=== PATIENT | female | born 1965 | race Caucasian/White ===

== ENCOUNTER → 2019-07-20 | Day surgery (SDC) | payer BC ==
[~2019-07-20] MED LIST: FENTANYL CITRATE/PF 100MCG/2 ML INJ ONE; FERROUS SULFAT325 MG PO; LIDOCAINE HCL 2% LOCAL INJ 5 ML SDV VIAL INJ ONE; LISINOPRIL-HCT1 EAC2 PO; MIDAZOLAM HCL 2 MG/2 ML VIAL ONE; PROPOFOL IV EMULSION 10 MG/ML 20 ML VIAL ONE; SIMETHICONE 40 MG/0.6 ML BTL ONE; VITAMIN C500 M1 PO; WOMEN'S DAILY1 EAC2 PO
--- OUTSIDE RECORDS SUMMARY | 2019-07-20 05:45 | XMS REPORT ---
Author [facility] Address Unknown Phone Unavailable Care Team Providers Care Bottom Worker Name Role Phone Unavailable Unavailable Payers Payer Name Policy Type Policy Number Effective Date Expiration Date Problems This patient has no known problems. Allergies, Adverse Reactions, Alerts Allergy Name Allergy Type Status Severity Reaction(s) Onset Date Inactive Date Treating Clinician Comments No Known Drug Allergies DA Active U 2018-01-26 00:00:00 Medications This patient has no known medications.
--- NOTE | 2019-07-20 07:10 | NUR ---
SPIRITUAL CARE - Pre-Surgery Assessment: Pt in bed. Pt's mom at bedside. Pt reported supportive attention from family and friends. Intervention: I provided pastoral presence, hospitality, and sympathetic listening. I acquainted pt with availability of security police while hospitalized. Outcome: Pt expressed appreciation for visit. No need for follow up indicated at this time. CLARITA Mccalllain Spiritual Care Department O: [phone] Pager: [phone] ([phone] number calling from)
[2019-07-20 10:20] VITALS: BP 104/73
--- NOTE | 2019-07-20 16:47 | Operative Report ---
DATE OF PROCEDURE: 07/20/2019 SURGEON: Maurilio Mccoy MD PROCEDURE PERFORMED: Colonoscopy. PREOPERATIVE DIAGNOSES: History of colon polyps, family history of colon cancer. POSTOPERATIVE DIAGNOSES: History of colon polyps, family history of colon cancer. PREOPERATIVE MEDICATIONS: Consisted of MAC anesthesia. DESCRIPTION OF PROCEDURE: Using an Olympus Trustlook video colonoscope, it was inserted into the patient's rectum and advanced without difficulty to the level of the cecum. The colon was studied from that level back down to the rectum. No polypoid lesions or tumor masses were identified. The colonoscope was withdrawn from the patient's rectum and the procedure was ended. Maurilio Mccoy MD SAF/MODL /[id number]
== END | disposition home or self-care (01) ==
LOC: OR 05:40
PROVIDERS: ATTEND Internal Medicine Gastroenterology
DX: Z09 Encounter for follow-up examination after completed treatment for conditions other than malignant neoplasm (principal); Z86.010 Personal history of colon polyps; K28.9 Gastrojejunal ulcer, unspecified as acute or chronic, without hemorrhage or perforation; D64.9 Anemia, unspecified; I10 Essential (primary) hypertension; I45.10 Unspecified right bundle-branch block; E66.01 Morbid (severe) obesity due to excess calories; Z01.810 Encounter for preprocedural cardiovascular examination; Z68.43 Body mass index [BMI] 50.0-59.9, adult; Z80.0 Family history of malignant neoplasm of digestive organs
CPT/HCPCS: 45378; 93005; J2001; J2704; J2250; J3010